=== PATIENT | male | born 1955 | race Caucasian/White ===

== ENCOUNTER → 2021-02-22 13:06 | Outpatient (CLI) | payer SELFPAY ==
--- NOTE | ~2021-02-22 | MR_ITS ---
EXAMINATION: MR knee RT wo con DATE: 02/22/2021 15:11 INDICATION: Unspecified internal derangement of right knee. Right knee pain. TECHNIQUE: Magnetic resonance imaging (MRI) of the right knee was performed without intravenous contr ast. Sequences included axial, coronal, and sagittal STIR FSE and T1-weighted FSE and sagittal PD-felipe ghted FSE. COMPARISON: None. FINDINGS: There is a total knee arthroplasty with patellar resurfacing. Artifact from the arthroplasty obscures the majority of the knee. There is mild patellar tendinopathy. There is a small knee joint effusion. IMPRESSION: 1. Total right knee arthroplasty. Artifact obscures the majority of the knee. 2. Small knee joint effusion. Reviewed, dictated and finalized at location A.
[2021-02-22 14:10] LABS: Estimated Glomerular Filt Rate > 60
== END ==
DX: M25.461 Effusion, right knee (principal)
CPT/HCPCS: 73721